=== PATIENT | male | born 1990 | race American Indian/Alaskan Native ===

== ENCOUNTER 2017-09-30 14:15 | Emergency (ER) | payer OTHER ==
[2017-09-30 14:24] VITALS: BP 110/63
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
== END 2017-09-30 20:55 | disposition home or self-care (01) ==
LOC: ED 14:15
DX: S46.911A Strain of unspecified muscle, fascia and tendon at shoulder and upper arm level, right arm, initial encounter (principal); S76.911A Strain of unspecified muscles, fascia and tendons at thigh level, right thigh, initial encounter; V89.2XXA Person injured in unspecified motor-vehicle accident, traffic, initial encounter; Y93.89 Activity, other specified; Y99.8 Other external cause status; Y92.488 Other paved roadways as the place of occurrence of the external cause
CPT/HCPCS: 99282